=== PATIENT | male | born 1980 | race Caucasian/White ===

== ENCOUNTER 2022-02-15 15:09 | Emergency (ER) | payer MEDICAID, OTHER ==
[~2022-02-15] VITALS: Ht 167.6 cm; Wt 67.9 kg
[2022-02-15] MEDS ORDERED: ROSU40TA4 (15:22)
[2022-02-15] MEDS ORDERED: LISI10TA22 (15:22)
[2022-02-15] MEDS ORDERED: METF10004 (15:22)
[2022-02-15] MEDS ORDERED: BOOSTRIX/ADACEL VACCINE (DIPHTH/PERTUSS/ACELL/TETANUS) 0.5ML SYR IM ONE (15:45)
[2022-02-15] MEDS ORDERED: BACITRACIN OINTMENT 30GM TUBE TOP ONE (16:55)
[2022-02-15 17:23] VITALS: BP 156/86
== END 2022-02-15 17:25 | disposition home or self-care (01) ==
LOC: M ED 15:09
DX: S61.041A Puncture wound with foreign body of right thumb without damage to nail, initial encounter (principal); W45.0XXA Nail entering through skin, initial encounter; Y92.89 Other specified places as the place of occurrence of the external cause; I10 Essential (primary) hypertension; E78.5 Hyperlipidemia, unspecified; Z79.899 Other long term (current) drug therapy